=== PATIENT | female | born 1990 | race Asian ===

== ENCOUNTER 2017-03-05 22:25 | Emergency (ER) | payer OTHER ==
[~2017-03-05] VITALS: Ht 154.9 cm; Wt 58.2 kg
[2017-03-06] MEDS ORDERED: PERTUSS(ACELL),DIPH,TET VAC/PF 0.5 ML VIAL IM ONE (03:30)
[2017-03-06 04:16] VITALS: BP 119/77
== END 2017-03-06 04:23 | disposition home or self-care (01) ==
LOC: EMS 22:29
DX: S30.810A Abrasion of lower back and pelvis, initial encounter (principal); W54.0XXA Bitten by dog, initial encounter; Y93.89 Activity, other specified; Y92.89 Other specified places as the place of occurrence of the external cause; Y99.8 Other external cause status
CPT/HCPCS: 90471; 90715; 99283